=== PATIENT | female | born 1990 | race Caucasian/White ===

== ENCOUNTER 2018-04-06 00:35 | Emergency (ER) | payer OTHER ==
[~2018-04-06] VITALS: Ht 152.4 cm; Wt 63.0 kg
[~2018-04-06 00:35] MED LIST: CARB-116 OT; CLIN300C8 PO; ETON1VAG VG; FLEXERIL; HYDR-971 PO; IBUP200T44 PO; MELO7.5T5 PO; NEOM10DR10 OT; SERT50TA PO
--- NOTE | 2018-04-06 00:43 | ED.ADGEN ---
Past History Past Medical History: Anxiety, Depression, Endometriosis, Other Past Surgical History: Other Alcohol Use: Occasionally Drug Use: None Adult General Chief Complaint Chief Complaint ".. I had a couple shots. ..and I tripped over my dog.. "Jassi Preston".. 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 forehead. No loss of consciousness. Pt. does have ext. table depression of skull. Pt. any health problems. Ricardo follows at [facility] for care. Up-to-date with vaccinations. Patient was ambulatory without problems. No history of travel or specific ill contacts. Review of Systems Review of Systems Constitutional: Denies fever or chills [] Eyes: Denies change in visual acuity, redness, or eye pain [] HENT: Denies nasal congestion or sore throat []complaints of head injury Respiratory: Denies cough or shortness of breath [] Cardiovascular: No additional information not addressed in HPI [] GI: Denies abdominal pain, nausea, vomiting, bloody stools or diarrhea [] : Denies dysuria or hematuria [] Musculoskeletal: Denies back pain or joint pain [] Integument: Denies rash or skin lesions []plaints of laceration Neurologic: Denies headache, focal weakness or sensory changes [] Endocrine: Denies polyuria or polydipsia [] All other systems were reviewed and found to be within normal limits, except as documented in this note. Family History Family History Noncontributory Current Medications Current Medications Current Medications Medications (Trade) Dose Ordered Sig/[place] Start Time Stop Time Status Last Admin Dose Admin Acetaminophen (Tylenol) 1,000 mg 1X ONCE 04/06/18 01:30 04/06/18 02:44 DC 04/06/18 01:52 1,000 MG Bupivacaine HCl (Sensorcaine Mpf 0.5%) 30 ml 1X ONCE 04/06/18 01:00 04/06/18 01:01 DC Bupivacaine HCl (Sensorcaine-Mpf 0.25%) 10 ml STK-MED ONCE 04/06/18 00:50 04/06/18 00:51 DC Lidocaine HCl 20 ml STK-MED ONCE 04/06/18 00:49 04/06/18 00:50 DC Ondansetron HCl (Zofran Odt) 8 mg 1X ONCE 04/06/18 01:30 04/06/18 02:44 DC 04/06/18 01:52 8 MG Allergies Allergies Allergies Uncoded Allergies Type Severity Reaction Last Updated Verified SILVER Allergy Intermediate RASH 06/18/15 Physical Exam Physical Exam Constitutional: Well developed, well nourished, moderately acute distress, non- toxic appearance. [] HENT: Normocephalic, 5 cm laceration to the bone on right side of forehead, bilateral external ears normal, oropharynx moist, no oral exudates, nose normal. [] Eyes: PERRLA, EOMI, conjunctiva injected,, no discharge. [] Neck: Normal range of motion, no tenderness, supple, no stridor. [] Cardiovascular:Heart rate regular rhythm, no murmur [] Lungs & Thorax: Bilateral breath sounds clear to auscultation [] Abdomen: Bowel sounds normal, soft, no tenderness, no masses, no pulsatile masses. [] Skin: Warm, dry, no erythema, no rash. [] Back: No tenderness, no CVA tenderness. [] Extremities: No tenderness, no cyanosis, no clubbing, ROM intact, no edema. [] Neurologic: Alert and oriented X 3, normal motor function, normal sensory function, no focal deficits noted. []DTRs are +2 at patella and brachial. Slitter Processed Film equal. Patient ambulatory without problems. Psychologic: Affect normal, judgement normal, mood normal. [] Current Patient Data Vital Signs Vital Signs Date Time Temp Pulse Resp B/P (MAP) Pulse Ox O2 Delivery O2 Flow Rate FiO2 04/06/18 00:40 99.1 106 20 96 Room Air EKG EKG [] Radiology/Procedures Radiology/Procedures My interpretation CT of head shows[] Course & Med Decision Making Course & Med Decision Making Pertinent Labs and Imaging studies reviewed. (See chart for details) Suture note- laceration cleaned with saline. Injected edges of laceration with Sensorcaine and lidocaine. Does have a depression of periosteum of skull. After extensive irrigation with saline. Sutures 4x 4-0 Vicryl internal sutures placed to control bleeding and close underlying subcutaneous tissue. Patient then received 7 Proline 4-0 sutures to close surface of laceration. Pt. to keep laceration clean and dry. Expect scarring. May have reduction of scar after 6 mo. to 2 yrs. If unsatisfied with scarring. Patient apply Polysporin 4 times a day. Avoid excessive sunlight after sutures removed. Recommend cover laceration with Band-Aid or Steri-Strips. [] Final Impression Final Impression 1. Head trauma 2. 5 cm laceration forehead[] Problems: Dragon Disclaimer Dragon Disclaimer This electronic medical record was generated, in whole or in part, using a voice recognition dictation system. ANAMIKA VICTORIA MD April 06, 2018 00:43
[2018-04-06] MEDS ORDERED: LIDOCAINE 1% Multi-Dose 20 ML VIAL. ONE (00:49)
[2018-04-06] MEDS ORDERED: BUPIVACAINE MPF 0.25% 10 ML VIAL. ONE (00:50)
[2018-04-06] MEDS ORDERED: BUPIVACAINE MPF 0.5% 30 ML VIAL. SQ ONE (01:00)
[2018-04-06] MEDS ORDERED: LIDOCAINE 2% 20 ML VIAL. IJ ONE (01:00)
[2018-04-06] MEDS ORDERED: ONDANSETRON ODT 4 MG TAB.RAPDIS PO ONE (01:30)
[2018-04-06] MEDS ORDERED: ACETAMINOPHEN 500 MG TABLET PO ONE (01:30)
--- NOTE | 2018-04-06 02:37 | RAD ---
INDICATION: Head injury. Laceration to right side of forehead. Alcohol on board COMPARISON: None. TECHNIQUE: Axial CT images obtained through the head and cervical spine without intravenous contrast. Coronal and sagittal reformats processed of cervical spine. One or more of the following individualized dose reduction techniques were utilized for this examination: 1. Automated exposure control; 2. Adjustment of the mA and/or kV according to patient size; 3. Use of iterative reconstruction technique. FINDINGS: Head: No intracranial hemorrhage. No midline shift. Basal cisterns patents. Ventricles and sulci are within normal limits. No acute osseous abnormality. Orbits and paranasal sinuses unremarkable. Cervical: No definite acute fracture. No dislocation. No evidence of perivertebral hematoma. There are some degenerative changes of the cervical spine IMPRESSION: 1. No acute intracranial hemorrhage. 2. Suspected small right frontal scalp cephalohematoma. 3. No definite acute fracture or dislocation of the cervical spine. Electronically signed by: Juan Nguyen MD (04/06/2018 2:34 AM) [facility]
[2018-04-06 02:40] VITALS: BP 128/84
== END 2018-04-06 02:45 | disposition home or self-care (01) ==
LOC: ER 00:35
DX: S01.81XA Laceration without foreign body of other part of head, initial encounter (principal); F41.9 Anxiety disorder, unspecified; F32.9 Major depressive disorder, single episode, unspecified; Z88.8 Allergy status to other drugs, medicaments and biological substances; W01.0XXA Fall on same level from slipping, tripping and stumbling without subsequent striking against object, initial encounter; Y93.89 Activity, other specified; Y99.8 Other external cause status; Y92.89 Other specified places as the place of occurrence of the external cause
CPT/HCPCS: 12013; 70450; 72125; 99284; Q0162

== ENCOUNTER 2018-04-11 16:20 | Emergency (ER) | payer OTHER ==
[~2018-04-11] VITALS: Ht 152.4 cm; Wt 63.0 kg
[2018-04-11 16:33] VITALS: BP 121/73
--- NOTE | 2018-04-11 16:59 | PHYS DOC ---
Past History Past Medical History: No Pertinent History Past Surgical History: Other Alcohol Use: Occasionally Drug Use: None Adult General Chief Complaint Chief Complaint: SUTURE/STAPLE REMOVAL HPI HPI 27-year-old female presents to the ED for suture removal. She had sutures placed in her right lateral forehead one week ago. He has had no complications with her sutures. She has had some intermittent headaches and skin numbness on her scalp. Those this time. She has no other complaints. Review of Systems Review of Systems Constitutional: Denies fever or chills [] Eyes: Denies change in visual acuity, redness, or eye pain [] HENT: Denies nasal congestion or sore throat [] Respiratory: Denies cough or shortness of breath [] Cardiovascular: No additional information not addressed in HPI [] GI: Denies abdominal pain, nausea, vomiting, bloody stools or diarrhea [] : Denies dysuria or hematuria [] Musculoskeletal: Denies back pain or joint pain [] Integument: Denies rash or skin lesions [] Neurologic: Denies headache, focal weakness or sensory changes [] Endocrine: Denies polyuria or polydipsia [] All other systems were reviewed and found to be within normal limits, except as documented in this note. Allergies Allergies Allergies Uncoded Allergies Type Severity Reaction Last Updated Verified SILVER Allergy Intermediate RASH 06/18/15 Physical Exam Physical Exam Constitutional: Well developed, well nourished, no acute distress, non-toxic appearance. [] HENT: Normocephalic, atraumatic, bilateral external ears normal, oropharynx moist, no oral exudates, nose normal. [] Eyes: PERRLA, EOMI, conjunctiva normal, no discharge. [] Neck: Normal range of motion, no tenderness, supple, no stridor. [] Cardiovascular:Heart rate regular rhythm, no murmur [] Lungs & Thorax: Bilateral breath sounds clear to auscultation [] Abdomen: Bowel sounds normal, soft, no tenderness, no masses, no pulsatile masses. [] Skin: Incision on the anterior right forehead. It is clean, dry, and intact. Sutures are in place and in good shape. No signs of infection.[] Back: No tenderness, no CVA tenderness. [] Extremities: No tenderness, no cyanosis, no clubbing, ROM intact, no edema. [] Neurologic: Alert and oriented X 3, normal motor function, normal sensory function, no focal deficits noted. [] Psychologic: Affect normal, judgement normal, mood normal. [] Current Patient Data Vital Signs Vital Signs Date Time Temp Pulse Resp B/P (MAP) Pulse Ox O2 Delivery O2 Flow Rate FiO2 04/11/18 16:33 98.2 76 16 98 Room Air EKG EKG [] Radiology/Procedures Radiology/Procedures [] Course & Med Decision Making Course & Med Decision Making Pertinent Labs and Imaging studies reviewed. (See chart for details) I removed 6 sutures from the patient's forehead without complication. She did not have any bleeding. The wound was clean, dry and intact. [] Dragon Disclaimer Dragon Disclaimer This electronic medical record was generated, in whole or in part, using a voice recognition dictation system. Departure Departure: Referrals: PCP,UNKNOWN (PCP) SRIRAM WRIGHT DO April 11, 2018 16:59
== END 2018-04-11 17:13 | disposition home or self-care (01) ==
LOC: ER 16:20
DX: S01.81XD Laceration without foreign body of other part of head, subsequent encounter (principal); R20.0 Anesthesia of skin; R51 Headache; Z91.048 Other nonmedicinal substance allergy status; X58.XXXD Exposure to other specified factors, subsequent encounter
CPT/HCPCS: 99281